=== PATIENT | male | born 1995 | race Caucasian/White ===

== ENCOUNTER 2017-01-16 20:56 | Observation (INO) ==
--- NOTE | 2017-01-17 00:35 | Emergency Department Note ---
Arrival - Arrival Chief Complaint: Abdominal / Flank Pain Stated Complaint: ABD PAIN ED Nursing Triage Note: C/O Lower abd pain. Onset 0000 lastnight. Pt just left [place] and states that he doesn't feel like he got a good enough answer for his problem. Pt states that he was told that he has an infection in his abdomen he was prescribed phenergan and keflex. Pt states that he feels like he needs a second opinion and something to take at home for pain. N/V. Last normal BM- lastnight. Denies fever. Denies urinary s/s Mode of Arrival: Wheelchair Limitations: No Limitations Source: Patient, Old Records Reviewed, RN Notes Reviewed Time Seen by Provider: 01/16/17 22:15 - History of Present Illness HPI Narrative: The patient complains of right lower quadrant pain since last night. He describes it as constant and dull. He has been nauseated and had one episode of vomiting. No diarrhea. His last bowel movement was yesterday. He last ate yesterday. He notes worsening pain with movement or walking. He has not had similar symptoms in the past and has no known history of abdominal problems. He denies any fever, dysuria, discharge or other symptoms. Allergies/Adverse Reactions: Allergies Allergy/AdvReac Type Severity Reaction Status Date / Time No Known Allergies Allergy Verified 01/16/17 21:00 Home Medications: Home Medications Medication Instructions Recorded Confirmed Type No Known Home Medications [No 01/16/17 01/16/17 History Known Home Medications] Review of System - Review of System 12 point system: reviewed and no additional remarkable complaints except as stated - Review of System Constitutional: Absent: fever Head/Ears/Nose/Throat: Absent: nasal drainage, sore throat Respiratory: Absent: cough Cardiovascular: Absent: chest pain Gastrointestinal: Present: abdominal pain, nausea, vomiting. Absent: diarrhea, constipation Genitourinary male: Absent: dysuria, discharge Musculoskeletal: Absent: back pain Medical,Surgical,& Family Hx - Medical History Medical History: noncontributory - Surgical History Additional Surgical History: "Facial reconstruction" - Family History Family History: noncontributory - Social History Smoking Status: Current every day smoker Frequency of Alcohol Use: None Type of Drug Use: None Exam Physical Examination: GENERAL: Alert. No acute distress. HEENT: Normocephalic and atraumatic. There is no nasal drainage. No pharyngeal erythema or exudate. NECK: Normal inspection. Supple. No lymphadenopathy or meningismus. LUNGS: No respiratory distress. Clear to auscultation bilaterally, no wheezes, rales or rhonchi. HEART: Regular rate and rhythm. ABDOMEN: Soft, nondistended with hypoactive bowel sounds. There is severe right lower quadrant tenderness with guarding and tenderness to percussion. He has market pain on movement of the right leg. BACK: Normal inspection. SKIN: Color normal. Warm and dry. EXTREMITIES: Nontender. Normal range of motion. No pedal edema. NEUROLOGICAL/PSYCHIATRIC: Alert and oriented -3 with normal mood and affect. Cranial nerves normal. No motor or sensory deficit. Vital Signs: Vital Signs Temperature 98.8 F 01/16/17 21:54 Pulse Rate 70 01/16/17 23:32 Respiratory Rate 20 01/16/17 23:32 Blood Pressure 122/61 01/16/17 23:32 O2 Sat by Pulse Oximetry 98 01/16/17 23:32 Course - Reevaluation(s) Reevaluation #1: The patient's workup from [facility] showed an elevated white blood cell count. His CT of the abdomen was read as normal except for a trace amount of free fluid. I do not have the actual images to review. His history and physical exam are consistent with appendicitis and I will have to assume it is that until proven otherwise. I have discussed the patient with Dr. Pao MARTE and will admit to him. Will put him on antibiotics and plan for appendectomy tomorrow. Time: 00:36 Results - Labs Lab Results: I have reviewed the patients labs Labs: Labs were done at [facility]: White blood cell count 17.51 Hemoglobin 15.7 Hematocrit 45.1 Platelets 274 Neutrophils 81% BUN 10 Creatinine 1 Carbon dioxide 25 Chloride 105 Potassium 3.8 Sodium 139 Glucose 96 Urine specific gravity greater than 1.03 Urine leukocyte esterase negative Urine ketones trace Drug screen positive for cannabinoids - Impressions The CT of the abdomen and pelvis was done at [place]. The report shows a normal appendix and no abnormalities other than a trace amount of free fluid within the pelvis. Disposition Clinical Impression: Acute appendicitis Case discussed with: patient, patient's family Disposition: Still a Patient Condition: Stable Time of Disposition: 00:44
[2017-01-17] MEDS ORDERED: PROMETHAZINE 25 MG/1 ML VIAL IM PRN (00:45)
[2017-01-17 00:55] LABS: Basophils # 0.1 10*3/uL (0.0-0.2); Basophils % 0.2 % (0.0-0.8); Hematocrit 41.5 VOL% (42.0-52.0); Hemoglobin 14.8 GM/DL (14.0-18.0); Immature Granulocytes % 0.5 %; Immature Granulocytes Absolute 0.11 #; Lymphocytes # 1.2 10*3/uL (1.4-4.0); Lymphocytes % 5.9 % (21.2-54.2); Mean Corpuscular HGB Conc 35.7 GM/DL (32-36); Mean Corpuscular Hemoglobin 31 PG (27-34); Mean Corpuscular Volume 87.9 FL (87-102); Mean Platelet Volume 9.7 FL (9.6-12.0); Monocytes # 1.9 10*3/uL (0.11-0.8); Monocytes % 9.3 % (1.7-12.7); Neutrophils # 17.2 10*3/uL (1.4-7.4); Neutrophils % 84.1 % (38.7-73.9); Platelet Count 201 T/CUMM (130-400); Red Blood Count 4.72 MC/CUMM (3.8-5.5); Red Cell Distribution Width 12.1 % (9.3-17.3); White Blood Count 20.5 T/CUMM (4-12)
[2017-01-17 01:13] LABS: Calcium 8.7 MG/DL (8.5-10.1); Osmolality,Calculated 274.7 MOS/KG (273-304); Potassium 3.7 MMOL/L (3.5-5.1)
[2017-01-17] MEDS ORDERED: ONDANSETRON 4 MG/2 ML VIAL ONE ×2 (01:33→14:38)
[2017-01-17] MEDS ORDERED: MORPHINE 2 MG/1 ML SYRINGE ONE (01:34)
[2017-01-17] MEDS: MORPHINE 2 MG/1 ML SYRINGE IV PRN ×5 (01:40→18:24)
[2017-01-17] MEDS: ONDANSETRON 4 MG/2 ML VIAL IV PRN ×2 (01:41→13:58)
[2017-01-17] MEDS: DEXTROSE 5% LACTATED RINGERS 1,000 ML IV SCH ×3 (02:10→19:06)
[2017-01-17 02:20] LABS: Band Neutrophils 3 % (0-10); Lymphocytes 8 % (20-55); Segmented Neutrophils 81 % (50-85)
[2017-01-17 02:21] LABS: Platelet Estimate Adequate; Total Cells Counted 100
--- NOTE | 2017-01-17 07:38 | General Surg History&Physical ---
Assessment and Plan - Time spent with patient Time spent with patient: Greater than 30 minutes (1) Acute appendicitis Status: Acute Assessment and plan: I saw the patient earlier this morning and I am putting in my note a little bit later. I have scheduled him for surgery but we are having to wait because of other cases being done this weekend with a limited OR crew. He appears in my opinion to have most likely acute appendicitis despite the imaging done at [facility]. We have already started IV antibiotics. I have discussed laparoscopic appendectomy along with the risks including conversion to open procedure, injury to bowel or bladder or other structures, infections or abscesses, etc. he understands these risks and wishes to proceed Current Visit: Yes Qualifiers: Acute appendicitis type: with localized peritonitis Qualified Code(s): K35.3 - Acute appendicitis with localized peritonitis History of Present Illness Chief complaint: Abdominal pain History of present illness: Mr. Ochoa is a 21 year old male Who for 2 days has had right lower quadrant pain which is worsened in severity. This pain is constant in the right lower quadrant is worse with movement and feels better if he lays still. It is been associated with low-grade temperature. It is moderate in severity. He was seen at [facility] where a CT scan was obtained which was reportedly normal. He continued to have abdominal pain and came to our emergency department. He did have a elevated white blood cell count. Home Medications Medication Instructions Recorded Confirmed Type No Known Home Medications [No 01/16/17 01/17/17 History Known Home Medications] Allergies Allergy/AdvReac Type Severity Reaction Status Date / Time No Known Allergies Allergy Verified 01/16/17 21:00 Medical,Surgical,& Family Hx - Medical History Medical History: noncontributory Musculoskeletal: History of: Musculoskeletal Problems (reconstructive facial surgery in 2012) - Surgical History Surgical History: noncontributory - Family History Family History: noncontributory - Social History Smoking Status: Current every day smoker Frequency of Alcohol Use: None Type of Drug Use: None Exam - Constitutional Vitals: Period Temp Pulse Resp BP Sys/Hutchison Pulse Ox Last 24 Hr 98.3 F-98.9 F 67-93 16-20 115-150/51-74 96-100 General appearance: no acute distress - Head Head exam: Present: normocephalic - Eye Eye exam: Absent: scleral icterus - ENT Mouth exam: Present: normal voice - Neck Neck exam: Present: trachea midline - Respiratory Respiratory exam: Present: clear to auscultation bilaterally. Absent: accessory muscle use - Cardiovascular Cardiovascular exam: Present: RRR - GI/Abdominal GI/Abdominal exam: Present: tenderness, soft. Absent: distended, guarding, rebound - Extremities Exam Extremities exam: Absent: edema - Back Exam Back exam: Present: normal inspection - Neurological Exam Neurological exam: Present: alert, oriented X3. Absent: motor sensory deficit Speech: Present: normal - Skin Skin exam: Present: normal color - Constitutional Constitutional: Present: fever(s). Absent: anorexia, chills, weight loss - Cardiovascular Cardiovascular: Absent: chest pain at rest, chest pain with activity, dyspnea, dyspnea on exertion - Respiratory Respiratory: Absent: dyspnea, hemoptysis, dyspnea on exertion - Gastrointestinal Gastrointestinal: Present: abdominal pain, nausea. Absent: hematemesis, hematochezia, vomiting, jaundice - Genitourinary Genitourinary: Absent: hematuria - Musculoskeletal Musculoskeletal: Absent: back pain - Neurological Neurological: Absent: focal weakness, syncope - Endocrine Endocrine: Absent: polyuria Hematologic/Lymphatic: Absent: easy bleeding, easy bruising Results - Labs CBC & BMP: 01/17/17 00:44 01/17/17 00:44 Lab Results: I have reviewed the past 24 hour labs
[2017-01-17] MEDS ORDERED: BUPIVACAINE 0.25% 50 ML VIAL ONE (11:57)
[2017-01-17] MEDS ORDERED: TISSUE ADHESIVE 1 EACH APPLICATOR TOP ONE (11:57)
--- NOTE | 2017-01-17 13:12 | Operative Note ---
Date of procedure: 01/17/17 Pre-op diagnosis: Acute appendicitis Post-op diagnosis: other (Acute retrocecal appendicitis) Procedure: Laparoscopic appendectomy (22) Findings and technique: After informed consent was obtained the patient was brought the operating room and placed in supine position. After successful induction with general anesthesia the patient's abdomen was prepped and draped in usual sterile fashion. Local anesthesia was infiltrated the umbilicus were small transverse incision was made in an open technique used to enter the peritoneal cavity under direct vision. Martinez cannula was inserted and pneumoperitoneum was established. Camera was inserted and 5 mm ports placed in the lower midline making sure to avoid the bladder and the right upper quadrant. This was done under direct camera vision. The cecum was visualized and the appendix was not immediately visible. I incised the peritoneal reflection along the cecum rolling it medially and this revealed an inflamed curled up appendix retrocecal. This was inflamed but was not perforated. There was no abscess. There was edema and inflammation in the retroperitoneal tissues. As I rolled this medially I did identify the gonadal vessels and the right ureter. I fired a stapler across the base of the appendix and then across the mesoappendix with vascular jenn. Good hemostasis was maintained. The appendix was placed in a Endo Catch bag and removed through the umbilical port site. The bed of dissection was irrigated suctioned dry and no bleeding noted. The ports removed and no bleeding noted from the port sites. The gas was evacuated from the abdomen and the fascial defect at the umbilicus closed with running 0 Monocryl suture. The skin incisions were closed with skin clips. He appeared to tolerate the procedure well. This was a much more difficult appendectomy than usual because of the retrocecal position and inflammation in the retroperitoneum. This added to the complexity and difficulty of the case essentially doubling the operative time but he had no apparent complications. Anesthesia: ROSALINDA, local Surgeon / Physician: Tian Cedeno III. Estimated blood loss: minimal Specimens: other (Appendix) Condition: stable Disposition: PACU Results - Labs CBC & BMP: 01/17/17 00:44 01/17/17 00:44 Discharge Plan - Discharge Medications No Action No Known Home Medications [No Known Home Medications] - Follow Up or Referral - Forms/Instructions
[2017-01-17] MEDS ORDERED: PROPOFOL 200 MG/20 ML VIAL IV ONE (14:37)
[2017-01-17] MEDS ORDERED: fentaNYL 100 MCG/2 ML VIAL ONE (14:38)
[2017-01-17] MEDS ORDERED: SEVOFLURANE 1 UNIT/15 MINUTE INH ONE (14:38)
[2017-01-17] MEDS ORDERED: SUCCINYLCHOLINE 200 MG/10 ML VIAL ONE (14:38)
[2017-01-17] MEDS ORDERED: ACETAMINOPHEN 1,000 MG/100 ML VIAL IV ONE (14:38)
--- NOTE | 2017-01-17 15:18 | Anesthesia Post-Op ---
Anesthesia Post OP - Post Ansesthetic Evaluation Patient seen in post op: Yes Resp: within normal limits CV: within normal limits Mental: within normal limits Temp: within normal limits [id number]: within normal limits Nausea and Vomiting: within normal limits Pain: within normal limits
[2017-01-17] MEDS: PANTOPRAZOLE 40 MG TABLET PO SCH (17:29)
[2017-01-18] MEDS: DEXTROSE 5% LACTATED RINGERS 1,000 ML IV SCH ×2 (01:13→09:46)
[2017-01-18] MEDS: MORPHINE 2 MG/1 ML SYRINGE IV PRN ×4 (01:15→23:20)
--- NOTE | 2017-01-18 09:36 | Event Note ---
He complains of pain in his right lower quadrant. He is afebrile with normal vital signs. His hematocrit is stable. His abdomen appears benign. He is not taking much p.o. yet. I will keep him today and continue antibiotics. He had a significant amount of periappendicitis.
[2017-01-18] MEDS: PANTOPRAZOLE 40 MG TABLET PO SCH (09:45)
[2017-01-19 07:26] VITALS: BP 107/53
[2017-01-19 07:27] LABS: Basophils % 0.4 % (0.0-0.8); Eosinophils # 0.2 10*3/uL (0.0-0.87); Eosinophils % 1.8 % (0.00-10.9); Hematocrit 37.6 VOL% (42.0-52.0); Hemoglobin 13.1 GM/DL (14.0-18.0); Immature Granulocytes % 0.6 %; Immature Granulocytes Absolute 0.05 #; Lymphocytes # 1.3 10*3/uL (1.4-4.0); Lymphocytes % 15.1 % (21.2-54.2); Mean Corpuscular HGB Conc 34.8 GM/DL (32-36); Mean Corpuscular Hemoglobin 32 PG (27-34); Mean Corpuscular Volume 90.6 FL (87-102); Mean Platelet Volume 10.3 FL (9.6-12.0); Monocytes # 1.1 10*3/uL (0.11-0.8); Monocytes % 13.4 % (1.7-12.7); Neutrophils # 5.8 10*3/uL (1.4-7.4); Neutrophils % 68.7 % (38.7-73.9); Platelet Count 186 T/CUMM (130-400); Red Blood Count 4.15 MC/CUMM (3.8-5.5); Red Cell Distribution Width 12.1 % (9.3-17.3); White Blood Count 8.4 T/CUMM (4-12)
[2017-01-19] MEDS: DEXTROSE 5% LACTATED RINGERS 1,000 ML IV SCH ×3 (07:44→11:01)
[2017-01-19] MEDS: PANTOPRAZOLE 40 MG TABLET PO SCH (09:28)
--- NOTE | 2017-01-19 11:57 | Discharge Summary ---
Hospital Course - Hospital Course Hospital Course: The patient is a 21-year-old male with no significant past medical history presents to the emergency department from an outside facility with acute retrocecal appendicitis with leukocytosis for which she underwent laparoscopic appendectomy with Dr. Cedeno. Initially, postoperatively he struggled with p.o. intake secondary to nausea. This improved patient was able to tolerate oral intake. Leukocytosis also resolved. At the time of discharge, he was also voiding without difficulty, passing flatus, and had adequate pain management. Patient was provided appropriate analgesics postoperatively, postoperative instructions, and a postoperative appointment. No oral antibiotics recommended at the time of discharge per Dr. Pao III. He was discharged home in good condition with care of his family members. Diagnosis - Discharge Diagnosis (1) Acute appendicitis Status: Acute Discharge Plan - Discharge Data Disposition: Disch To Home/Self Care Condition at Discharge: Stable Discharge Diet: advance to your usual diet Activity: no lifting (> 10 lb), other (Avoid sweating) Hygiene: may shower Driving: other (No driving while taking narcotic) Contact your physician if you experience:: fever over 101, Redness or swelling, Nausea/Vomiting, Bleeding, pain uncontrolled by pain medications Wound / Dressing Care Instructions: Keep incisions clean, dry and covered. - Discharge Medications New HYDROcodone/ACETAMIN 7.5-325 [Cardale 7.5-325] 1 tablet PO Q4H PRN #30 tablet PRN Reason: Pain Moderate To Severe (4-10) - Follow Up or Referral Follow Up: Tian Cedeno III., MD [Physician] - (7-10days) - Forms/Instructions Instructions: Laparoscopic Appendectomy (DC) Exam - Constitutional Vitals: Period Temp Pulse Resp BP Sys/Hutchison Pulse Ox Last 24 Hr 97.1 F-98.8 F 77-104 18-20 107-141/53-75 95-99 General appearance: no acute distress - Head Head exam: Present: normocephalic - Respiratory Respiratory exam: Present: clear to auscultation bilaterally - Cardiovascular Cardiovascular exam: Present: regular rate and rhythm - GI/Abdominal GI/Abdominal exam: Present: normal bowel sounds, soft, other (Surgical incisions are clean, dry and intact. Abdomen is appropriately tender postoperatively. No significant right lower quadrant tenderness. No peritoneal signs.). Absent: distended - Extremities Exam Extremities exam: Absent: calf tenderness, edema - Neurological Exam Neurological exam: Present: alert, oriented X3 - Psychiatric Psychiatric exam: Present: normal affect, normal mood Discharge Results Procedures and tests throughout hospitalization: Laparoscopic appendectomy Dr. Tian Cedeno; pathology pending at the time of discharge Labs on day of discharge: Labs from last 24 hours 01/19/17 07:15 WBC 8.4 D RBC 4.15 Hgb 13.1 L Hct 37.6 L MCV 90.6 MCH 32 MCHC 34.8 RDW 12.1 Plt Count 186 MPV 10.3 Neut % (Auto) 68.7 Lymph % (Auto) 15.1 L [place] % (Auto) 13.4 H Eos % (Auto) 1.8 Baso % (Auto) 0.4 Neut # (Auto) 5.8 Lymph # (Auto) 1.3 L [place] # (Auto) 1.1 H Eos # (Auto) 0.2 Baso # (Auto) 0.0 Immature Gran % 0.6 Nucleated RBC % 0.0 Immature Gran # 0.05 Nucleated RBCs # 0.00 Immature Plt Fraction 0.0 - Additional Comments Transfer chart reviewed in its entirety DS: Provider Date of admission: 01/17/17 00:51 Primary care physician: . No PCP Attending physician on admission: Tian Cedeno, III., Consults: 01/18/17 10:58 Consult to Physical Therapy [CONS] Routine Reason for Physical Therapy: Other Consult Comment: Alex a vero Discharging clinician: Neisha Cuellar PA-C
--- NOTE | 2017-01-19 12:10 | Event Note ---
He looks and feels better. He has a normal white blood cell count and his abdomen is benign. He should be fine for discharge with plans to follow-up in my office in 1 week.
--- NOTE | 2017-01-19 18:19 | Pathology Report from [facility] ---
[facility] ACCESSION # : [id number] PATIENT NAME : Stephen Ochoa ORDERING DR : ROBERTO TAYLOR III, MD CLINICAL HX: Acute appendicitis POST-OP DX: Same SPECIMEN INFO: Appendix GROSS DESCRIPTION: The specimen is received in formalin labeled with the patients name and consists of an appendix measuring 6.8 cm in length and up to 1.0 cm in diameter. The mucosa is shaggy and erythematous. Sectioning reveals a patent lumen with fecal material noted primarily near the distal end. No fecaliths, perforations appreciated. Immunology Specialist sections submitted in one cassette. DIAGNOSIS FOR STEPHEN OCHOA: APPENDIX, APPENDECTOMY: Acute appendicitis. COLLECTED DATE: 01/18/2017 [facility] REPORT DATE: 01/19/2017 ELECTRONICALLY SIGNED BY: Fabian Lemons M.D. 01/19/2017 - 10:00:42 [facility]
== END 2017-01-19 13:10 | disposition home or self-care (01) ==
LOC: N.ED 20:56 → N.EDINP 20:56 → N.5E 01-17 01:12
PROVIDERS: ADMIT Surgery; ATTEND Surgery